=== PATIENT | male | born 1940 | race Hispanic/Latino ===

== ENCOUNTER → 2017-12-03 | Outpatient (CLI) | payer MEDICARE | LOC: RAH 15:30 | PROVIDERS: ATTEND Family Medicine | DX: M50.321 Other cervical disc degeneration at C4-C5 level (principal) | CPT/HCPCS: 72040; 72100; 73502 ==

== ENCOUNTER 2018-02-14 17:11 | Emergency (ER) | payer MEDICARE ==
[2018-02-14] MEDS ORDERED: TRAMADOL HCL 50 MG TABLET ONE (18:20)
== END 2018-02-14 19:53 | disposition home or self-care (01) ==
LOC: EDH 17:11
DX: M25.562 Pain in left knee (principal); R07.81 Pleurodynia; E11.9 Type 2 diabetes mellitus without complications; Z79.4 Long term (current) use of insulin; W01.0XXA Fall on same level from slipping, tripping and stumbling without subsequent striking against object, initial encounter; Y93.01 Activity, walking, marching and hiking; Y92.89 Other specified places as the place of occurrence of the external cause; Y99.8 Other external cause status
CPT/HCPCS: 71045; 71100; 73070; 73562

== ENCOUNTER 2020-06-02 07:22 | Day surgery (SDC) | payer OTHER, MEDICARE ==
[2020-05-31 14:42] LABS: BASOPHILS % (AUTO) 0.7 % (0.0-5.0); EOSINOPHILS % (AUTO) 3.8 % (0.0-8.0); HEMATOCRIT 35.4 % (42-54); LYMPHOCYTES % (AUTO) 18.9 % (21.0-51.0); MEAN CORPUSCULAR HGB CONC 32.5 g/dL (32.0-36.0); MEAN CORPUSCULAR VOLUME 101.7 fL (79-99); MONOCYTES % (AUTO) 8.6 % (3.0-13.0); NEUTROPHILS % (AUTO) 67.9 % (40.0-77.0); PLATELET COUNT (AUTO) 221 K/uL (130-400); RED BLOOD CELL COUNT(AUTO) 3.48 MIL/uL (4.50-6.20); RED CELL DISTRIBUTION WIDTH 12.7 % (11.0-15.5); WHITE BLOOD COUNT (AUTO) 7.3 K/uL (4.8-10.8)
[2020-05-31 14:54] LABS: INR 0.93 (0.85-1.15); PROTHROMBIN TIME 10.1 SEC (9.6-11.6)
[2020-05-31 14:56] LABS: ALBUMIN 3.9 g/dL (3.5-5.0); BILIRUBIN,TOTAL 0.6 mg/dL (0.2-1.0); CREATININE 6.9 mg/dL (0.5-1.5); POTASSIUM 5.8 mmol/L (3.5-5.1); TOTAL PROTEIN, SERUM 8.3 g/dL (6.0-8.3)
[2020-05-31 16:28] VITALS: BP 150/70
--- NOTE | 2020-06-01 16:39 | NUR ---
NURSE FOR DR. JULIANA MESSER NOTIFED OF ABNORMAL POTASSIUM, REPEAT DAY OF PROCEDURE. WILL ALSO SEND H&P.
[~2020-06-02] VITALS: Ht 165.1 cm; Wt 70.4 kg
[~2020-06-02 07:22] MED LIST: AMLO5TAB4 PO; CARV25TA77 PO; CHLO25TA23 PO; FERR-82 PO; FERR159T2 PO; INSU300I SQ; PANT40TA54 PO; PIOG45TA64 PO; SITA50TA PO; TAMS-1 PO; VITA1CAP20 PO
== END 2020-06-02 09:00 | disposition home or self-care (01) ==
LOC: DAH 07:22
PROVIDERS: ATTEND Thoracic Surgery (Cardiothoracic Vascular Surgery)
DX: Z01.818 Encounter for other preprocedural examination (principal); N18.6 End stage renal disease; Z99.2 Dependence on renal dialysis
CPT/HCPCS: 36415; 80053; 85025; 85610; 85730

== ENCOUNTER → 2020-07-12 | Outpatient (CLI) | payer OTHER, MEDICARE | END | disposition home or self-care (01) | LOC: LAB 07:56 | PROVIDERS: ATTEND Thoracic Surgery (Cardiothoracic Vascular Surgery) | DX: T82.590A Other mechanical complication of surgically created arteriovenous fistula, initial encounter (principal); N18.6 End stage renal disease ==

== ENCOUNTER → 2020-07-14 | Outpatient (CLI) | payer OTHER, MEDICARE ==
[2020-07-12 08:59] LABS: CREATININE 7.2 mg/dL (0.5-1.5)
[~2020-07-14] MED LIST changes: +IOHEXOL 350 MG/ML 100ML INFUS..BTL IV ONE
== END ==
LOC: RAH 08:29
PROVIDERS: ATTEND Thoracic Surgery (Cardiothoracic Vascular Surgery)
DX: T82.590A Other mechanical complication of surgically created arteriovenous fistula, initial encounter (principal); J98.11 Atelectasis; I77.0 Arteriovenous fistula, acquired; Y83.9 Surgical procedure, unspecified as the cause of abnormal reaction of the patient, or of later complication, without mention of misadventure at the time of the procedure; Y92.89 Other specified places as the place of occurrence of the external cause
CPT/HCPCS: 36415; 71275; 73206; 82565; 84520; Q9967

== ENCOUNTER → 2020-09-01 | Outpatient (CLI) | payer OTHER, MEDICARE ==
[~2020-09-01] MED LIST changes: -IOHEXOL 350 MG/ML 100ML INFUS..BTL IV ONE
== END | disposition home or self-care (01) ==
LOC: RAH 09:35
PROVIDERS: ATTEND Thoracic Surgery (Cardiothoracic Vascular Surgery)
DX: Z01.818 Encounter for other preprocedural examination (principal); T82.868A Thrombosis due to vascular prosthetic devices, implants and grafts, initial encounter; N18.6 End stage renal disease; Z99.2 Dependence on renal dialysis
CPT/HCPCS: 93971

== ENCOUNTER 2021-01-12 05:56 | Day surgery (SDC) | payer OTHER, MEDICARE ==
[2021-01-11 15:17] LABS: BASOPHILS % (AUTO) 1.1 % (0.0-5.0); EOSINOPHILS % (AUTO) 3.4 % (0.0-8.0); HEMATOCRIT 31.7 % (42-54); LYMPHOCYTES % (AUTO) 15.9 % (21.0-51.0); MEAN CORPUSCULAR HEMOGLOBIN 32.8 pg (27.0-33.0); MEAN CORPUSCULAR HGB CONC 34.1 g/dL (32.0-36.0); MEAN CORPUSCULAR VOLUME 96.4 fL (79-99); MONOCYTES % (AUTO) 10.6 % (3.0-13.0); NEUTROPHILS % (AUTO) 68.5 % (40.0-77.0); PLATELET COUNT (AUTO) 214 K/uL (130-400); RED BLOOD CELL COUNT(AUTO) 3.29 MIL/uL (4.50-6.20); RED CELL DISTRIBUTION WIDTH 13.1 % (11.0-15.5); WHITE BLOOD COUNT (AUTO) 4.4 K/uL (4.8-10.8)
[2021-01-11 15:29] LABS: INR 0.96 (0.85-1.15); PROTHROMBIN TIME 10.5 SEC (9.6-11.6)
[2021-01-11 15:31] VITALS: BP 162/76
[2021-01-11 15:31] LABS: PARTIAL THROMBOPLASTIN TIME 30.2 SEC (26.3-35.5)
[2021-01-11 15:33] LABS: ALBUMIN 3.9 g/dL (3.5-5.0); BILIRUBIN,TOTAL 0.7 mg/dL (0.2-1.0); CREATININE 3.8 mg/dL (0.5-1.5); POTASSIUM 3.6 mmol/L (3.5-5.1); TOTAL PROTEIN, SERUM 8.4 g/dL (6.0-8.3)
[2021-01-12] VITALS (20 sets, daily range): BP systolic 132–195; BP diastolic 68–99
[~2021-01-12] VITALS: Ht 170.2 cm; Wt 70.7 kg
[~2021-01-12 05:56] MED LIST changes: +CALC667C10 PO; -FERR-82 PO; -FERR159T2 PO; +HYDR-3421 PO; -INSU300I SQ; +LOSA25TA41 PO; +MECL-160 PO; +SEMA7TAB PO; -SITA50TA PO; +TRAZ-185 PO; -VITA1CAP20 PO
[2021-01-12] MEDS ORDERED: CEFAZOLIN SODIUM 1 GM VIAL IVP SCH (06:00)
[2021-01-12] MEDS ORDERED: LIDOCAINE HCL 2% 20ML ONE (06:43)
[2021-01-12] MEDS ORDERED: MIDAZOLAM HCL 1 MG/ML 2ML VIAL ONE (06:44)
[2021-01-12] MEDS ORDERED: LACTATED RINGERS 1000ML 1,000 ML IV ONE (06:50)
[2021-01-12] MEDS ORDERED: GLYCOPYRROLATE 1 MG/5 ML SYRINGE ONE (08:38)
[2021-01-12] MEDS ORDERED: NEOSTIGMINE 5MG/5ML SYR IV ONE (08:38)
[2021-01-12] MEDS ORDERED: FENTANYL CITRATE PF 50 MCG/1 ML 2ML VIAL ONE (08:40)
[2021-01-12] MEDS ORDERED: HEPARIN SODIUM 1000UNIT/ML 10ML VIAL ONE (08:45)
[2021-01-12] MEDS ORDERED: HYDRALAZINE HCL 20 MG/ML VIAL ONE (08:59)
[2021-01-12] MEDS ORDERED: ACETAMINOPHEN EXTRA STRENGTH 500 MG TABLET ONE (10:11)
[2021-01-12] MEDS ORDERED: ACETAMINOPHEN EXTRA STRENGTH 500 MG TABLET PO SCH (10:30)
== END 2021-01-12 11:00 | disposition home or self-care (01) ==
LOC: DAH 05:56
PROVIDERS: ATTEND Thoracic Surgery (Cardiothoracic Vascular Surgery)
DX: E11.22 Type 2 diabetes mellitus with diabetic chronic kidney disease (principal); Z20.822 Contact with and (suspected) exposure to COVID-19; I12.0 Hypertensive chronic kidney disease with stage 5 chronic kidney disease or end stage renal disease; N18.6 End stage renal disease; K21.9 Gastro-esophageal reflux disease without esophagitis; D64.9 Anemia, unspecified; Z79.899 Other long term (current) drug therapy; Z99.2 Dependence on renal dialysis; Z79.01 Long term (current) use of anticoagulants
CPT/HCPCS: 36415; 36821; 71045; 80053; 82948 ×2; 85025; 85610; 85730; 86850; 86900; 86901; 87426; 93005; A4215; A4216; A4221; A4222; A4223 ×2; A4657; A4663; A6207; A6260; C1713 ×2; G0168; J0360; J0690; J1644 ×2; J2250; J2710; J3010; J3490 ×2; J7030; J7120

== ENCOUNTER 2021-10-02 19:16 | Inpatient (IN) | payer OTHER, MEDICARE ==
[~2021-10-02] VITALS: Ht 170.2 cm; Wt 78.2 kg
[2021-10-02 20:06] LABS: BASOPHILS % (AUTO) 0.1 % (0.0-5.0); HEMATOCRIT 33.3 % (42-54); LYMPHOCYTES % (AUTO) 1.9 % (21.0-51.0); MEAN CORPUSCULAR HEMOGLOBIN 31.9 pg (27.0-33.0); MEAN CORPUSCULAR HGB CONC 29.7 g/dL (32.0-36.0); MEAN CORPUSCULAR VOLUME 107.4 fL (79-99); MONOCYTES % (AUTO) 4.4 % (3.0-13.0); NEUTROPHILS % (AUTO) 92.9 % (40.0-77.0); PLATELET COUNT (AUTO) 176 K/uL (130-400); RED CELL DISTRIBUTION WIDTH 13.3 % (11.0-15.5); WHITE BLOOD COUNT (AUTO) 7.5 K/uL (4.8-10.8)
[2021-10-02 20:10] LABS: ABG BASE EXCESS -16.8 mmol/L (-2.0-3.0); ABG HCO3 10.7 mmol/L (21.0-28.0); ABG OXYGEN SATURATION 91.6 % (95.0-99.0); ABG PCO2 31 mmHg (35-48)
[2021-10-02 20:23] LABS: INR 0.98 (0.85-1.15); PROTHROMBIN TIME 10.7 SEC (9.6-11.6)
[2021-10-02 20:24] LABS: PARTIAL THROMBOPLASTIN TIME 38.1 SEC (26.3-35.5)
[2021-10-02 20:28] LABS: ALBUMIN 2.5 g/dL (3.5-5.0); BILIRUBIN,TOTAL 0.7 mg/dL (0.2-1.0); TOTAL PROTEIN, SERUM 6.9 g/dL (6.0-8.3)
[2021-10-02 20:49] LABS: CREATININE 9.1 mg/dL (0.5-1.5); POTASSIUM 6.7 mmol/L (3.5-5.1)
[2021-10-02] MEDS ORDERED: 0.9%NACL 1000ML 1,000 ML IV ONE (20:58)
[2021-10-02] MEDS ORDERED: 0.9%NACL 50ML IV SCH (21:00)
[2021-10-02] MEDS ORDERED: INSULIN REGULAR, HUMAN 3ML 100 UNIT in 0.9%NACL 100ML 99 ML IV SCH ×2 (21:00)
[2021-10-02] MEDS ORDERED: INSULIN HUMULIN R 100 UNIT/ML 3ML IV ONE (21:00)
[2021-10-02] MEDS ORDERED: CALCIUM GLUC 1GM/10ML VIAL IVPB SCH (21:00)
[2021-10-02] MEDS ORDERED: INSULIN HUMULIN R 100 UNIT/ML 3ML ONE ×4 (21:08→23:53)
[2021-10-02] MEDS ORDERED: SODIUM BICARB 50MEQ 50ML VIAL 50 ML ONE (21:08)
[2021-10-02] MEDS ORDERED: NOREPINEPHRIN 4MG/NS 250ML 250 ML IV ONE (21:42)
[2021-10-02] MEDS ORDERED: SODIUM BICARB 50MEQ 50ML VIAL IV ONE (22:00)
[2021-10-02] MEDS: HEPARIN 5,000 UNIT VIAL SQ SCH (22:00)
[2021-10-02] MEDS ORDERED: GUAIFENESIN-DM 200/20 MG 10 ML PO PRN (22:00)
[2021-10-02] MEDS ORDERED: LACTATED RINGERS 1000ML 1,000 ML IV SCH (22:00)
[2021-10-02] MEDS ORDERED: NOREPINEPHRIN 4MG/NS 250ML 250 ML IV SCH (22:00)
[2021-10-02] MEDS: SODIUM BICARB 8.4% 50ML SYRINGE IVP SCH ×2 (22:00→23:00)
[2021-10-02] MEDS ORDERED: ALBUTEROL 0.083% 2.5 MG/3 ML INH IH ONE (22:00)
[2021-10-02] MEDS ORDERED: NITROGLYCERIN 0.4 MG SL TAB SL PRN (22:00)
[2021-10-02] MEDS ORDERED: ONDANSETRON 4MG INJ IV PRN (22:00)
[2021-10-02] MEDS ORDERED: LACTULOSE 20 GM/30 ML UDCUP PO PRN (22:00)
[2021-10-02 23:02] LABS: MAGNESIUM 2.4 mg/dL (1.80-2.40); PHOSPHORUS 8.5 mg/dL (2.5-4.9); THYROID STIMULATING HORMONE 0.37 uIU/mL (0.36-3.74)
[2021-10-02] MEDS: DEXAMETHASONE SOD PHOSPHATE 4 MG/ML 1ML VIAL IV SCH (23:26)
[2021-10-03] VITALS (11 sets, daily range): BP systolic 117–145; BP diastolic 52–66
[2021-10-03] MEDS ORDERED: INSULIN HUMULIN R 100 UNIT/ML 3ML IV ONE ×3 (00:30→06:00)
[2021-10-03 01:40] LABS: POTASSIUM 4.6 mmol/L (3.5-5.1)
[2021-10-03 01:44] LABS: CREATININE 9.3 mg/dL (0.5-1.5)
[2021-10-03] MEDS ORDERED: INSULIN HUMULIN R 100 UNIT/ML 3ML ONE (02:01)
[2021-10-03] MEDS: SODIUM BICARB 8.4% 50ML SYRINGE IVP SCH ×3 (02:34→03:00)
[2021-10-03 04:39] LABS: ALBUMIN 2.7 g/dL (3.5-5.0); BILIRUBIN,TOTAL 0.7 mg/dL (0.2-1.0); MAGNESIUM 2.2 mg/dL (1.80-2.40); PHOSPHORUS 4.9 mg/dL (2.5-4.9); POTASSIUM 4.1 mmol/L (3.5-5.1); TOTAL PROTEIN, SERUM 7.2 g/dL (6.0-8.3)
[2021-10-03 05:33] LABS: CREATININE 9.2 mg/dL (0.5-1.5)
[2021-10-03 07:34] LABS: HEMATOCRIT 28.9 % (42-54); MEAN CORPUSCULAR HEMOGLOBIN 30.9 pg (27.0-33.0); MEAN CORPUSCULAR HGB CONC 34.9 g/dL (32.0-36.0); MEAN CORPUSCULAR VOLUME 88.4 fL (79-99); PLATELET COUNT (AUTO) 195 K/uL (130-400); RED BLOOD CELL COUNT(AUTO) 3.27 MIL/uL (4.50-6.20); RED CELL DISTRIBUTION WIDTH 11.9 % (11.0-15.5); WHITE BLOOD COUNT (AUTO) 7.7 K/uL (4.8-10.8)
[2021-10-03 08:39] LABS: MAN.DIFF COMMENT-IMPRESSION MANUAL DIFFERENTIAL; MONOCYTES % (MANUAL) 2 % (2-9); SEGMENTED NEUTROPHILS % 98 % (40-70)
[2021-10-03 08:40] LABS: PLATELET MORPHOLOGY COMMENT ADEQUATE
[2021-10-03 08:45] LABS: HEMOGLOBIN A1C 13.6 % (4.0-6.0)
[2021-10-03] MEDS: PANTOPRAZOLE 40 MG/VIAL IVP SCH (09:00)
[2021-10-03 09:50] LABS: ABG BASE EXCESS 6.7 mmol/L (-2.0-3.0); ABG OXYGEN SATURATION 97.7 % (95.0-99.0); ABG PCO2 39 mmHg (35-48)
[2021-10-03] MEDS: HEPARIN 5,000 UNIT VIAL SQ SCH ×2 (10:00→23:07)
[2021-10-03 10:52] LABS: CREATININE 5.1 mg/dL (0.5-1.5); POTASSIUM 3.5 mmol/L (3.5-5.1)
[2021-10-03 14:28] LABS: HEPATITIS B SURFACE ANTIGEN Non-Reactive (Negative)
[2021-10-03] MEDS ORDERED: HALOPERIDOL INJ 5 MG/ML VIAL ONE (17:40)
[2021-10-03] MEDS ORDERED: HALOPERIDOL INJ 5 MG/ML VIAL IV PRN (18:00)
[2021-10-03] MEDS: HALOPERIDOL INJ 5 MG/ML VIAL IV PRN (18:16)
[2021-10-03] MEDS: OSELTAMIVIR PHOSPHATE 75 MG CAP PO SCH (23:05)
[2021-10-03] MEDS: DEXAMETHASONE SOD PHOSPHATE 4 MG/ML 1ML VIAL IV SCH (23:07)
[2021-10-04] VITALS (41 sets, daily range): BP systolic 100–158; BP diastolic 46–89
[2021-10-04] MEDS: ACETAMINOPHEN 325 MG TAB PO PRN ×2 (01:29→14:51)
[2021-10-04] MEDS: INSULIN REGULAR, HUMAN 3ML 100 UNIT in 0.9%NACL 100ML 99 ML IV PRN ×6 (03:11→18:13)
[2021-10-04 04:11] LABS: ABG BASE EXCESS -2.3 mmol/L (-2.0-3.0); ABG HCO3 21.7 mmol/L (21.0-28.0); ABG OXYGEN SATURATION 95.5 % (95.0-99.0); ABG PCO2 35 mmHg (35-48)
[2021-10-04] MEDS: INSULIN HUMULIN R 100 UNIT/ML 3ML SQ SCH ×4 (07:30→21:00)
[2021-10-04] MEDS ORDERED: INSULIN GLARGINE 100 UNITS/ML 10 ML VIAL SQ ONE (08:30)
[2021-10-04 09:24] LABS: HEMATOCRIT 27.8 % (42-54); LYMPHOCYTES % (AUTO) 2.2 % (21.0-51.0); MEAN CORPUSCULAR HEMOGLOBIN 32.1 pg (27.0-33.0); MEAN CORPUSCULAR HGB CONC 35.3 g/dL (32.0-36.0); MEAN CORPUSCULAR VOLUME 91.1 fL (79-99); MONOCYTES % (AUTO) 4.3 % (3.0-13.0); PLATELET COUNT (AUTO) 188 K/uL (130-400); RED BLOOD CELL COUNT(AUTO) 3.05 MIL/uL (4.50-6.20); RED CELL DISTRIBUTION WIDTH 12.3 % (11.0-15.5); WHITE BLOOD COUNT (AUTO) 7.8 K/uL (4.8-10.8)
[2021-10-04 09:43] LABS: ALBUMIN 2.3 g/dL (3.5-5.0); BILIRUBIN,TOTAL 0.5 mg/dL (0.2-1.0); CREATININE 6.9 mg/dL (0.5-1.5); POTASSIUM 3.9 mmol/L (3.5-5.1); TOTAL PROTEIN, SERUM 6.1 g/dL (6.0-8.3)
[2021-10-04] MEDS: PANTOPRAZOLE 40 MG/VIAL IVP SCH (09:45)
[2021-10-04] MEDS: HEPARIN 5,000 UNIT VIAL SQ SCH ×2 (09:48→22:11)
[2021-10-04] MEDS: DEXMEDETOMIDINE 400MCG/NS100ML IV SCH (18:15)
[2021-10-04 19:30] LABS: CREATININE 4.2 mg/dL (0.5-1.5); POTASSIUM 3.4 mmol/L (3.5-5.1)
[2021-10-04] MEDS ORDERED: LIDOCAINE HCL-MPF 1% 2ML VIAL IV PRN (20:30)
[2021-10-04] MEDS ORDERED: POTASSIUM CHLORIDE 10MEQ/100ML 100 ML IV PRN (20:30)
[2021-10-04] MEDS: DEXAMETHASONE SOD PHOSPHATE 4 MG/ML 1ML VIAL IV SCH (22:10)
[2021-10-04] MEDS: OSELTAMIVIR PHOSPHATE 75 MG CAP PO SCH (22:12)
[2021-10-05] VITALS (36 sets, daily range): BP systolic 116–166; BP diastolic 48–101
[2021-10-05 03:50] LABS: BASOPHILS % (AUTO) 0.1 % (0.0-5.0); LYMPHOCYTES % (AUTO) 1.8 % (21.0-51.0); MEAN CORPUSCULAR HEMOGLOBIN 31.4 pg (27.0-33.0); MEAN CORPUSCULAR HGB CONC 33.2 g/dL (32.0-36.0); MEAN CORPUSCULAR VOLUME 94.5 fL (79-99); MONOCYTES % (AUTO) 2.2 % (3.0-13.0); NEUTROPHILS % (AUTO) 94.9 % (40.0-77.0); PLATELET COUNT (AUTO) 172 K/uL (130-400); RED BLOOD CELL COUNT(AUTO) 3.28 MIL/uL (4.50-6.20); RED CELL DISTRIBUTION WIDTH 12.7 % (11.0-15.5); WHITE BLOOD COUNT (AUTO) 8.3 K/uL (4.8-10.8)
[2021-10-05 04:05] LABS: ALBUMIN 2.3 g/dL (3.5-5.0); BILIRUBIN,TOTAL 0.7 mg/dL (0.2-1.0); CREATININE 4.9 mg/dL (0.5-1.5); POTASSIUM 4.4 mmol/L (3.5-5.1); TOTAL PROTEIN, SERUM 6.3 g/dL (6.0-8.3)
[2021-10-05] MEDS: DEXMEDETOMIDINE 400MCG/NS100ML IV SCH ×3 (04:10→18:04)
[2021-10-05 04:27] LABS: ABG BASE EXCESS -3.9 mmol/L (-2.0-3.0); ABG HCO3 19.9 mmol/L (21.0-28.0); ABG OXYGEN SATURATION 97.8 % (95.0-99.0); ABG PCO2 33 mmHg (35-48)
[2021-10-05] MEDS: INSULIN GLARGINE 100 UNITS/ML 10 ML VIAL SQ SCH ×2 (06:47→09:43)
[2021-10-05] MEDS: INSULIN HUMULIN R 100 UNIT/ML 3ML SQ SCH (06:48)
[2021-10-05] MEDS: PANTOPRAZOLE 40 MG/VIAL IVP SCH (09:41)
[2021-10-05] MEDS: HEPARIN 5,000 UNIT VIAL SQ SCH ×2 (09:42→21:26)
[2021-10-05 19:28] LABS: CREATININE 5.8 mg/dL (0.5-1.5)
[2021-10-05] MEDS: DEXAMETHASONE SOD PHOSPHATE 4 MG/ML 1ML VIAL IV SCH (21:26)
[2021-10-06] VITALS (49 sets, daily range): BP systolic 113–179; BP diastolic 50–106
[2021-10-06] MEDS: DEXMEDETOMIDINE 400MCG/NS100ML IV SCH ×3 (01:06→18:10)
[2021-10-06 04:14] LABS: EOSINOPHILS % (AUTO) 0.2 % (0.0-8.0); HEMATOCRIT 32.7 % (42-54); LYMPHOCYTES % (AUTO) 3.1 % (21.0-51.0); MEAN CORPUSCULAR HEMOGLOBIN 31.1 pg (27.0-33.0); MEAN CORPUSCULAR HGB CONC 32.4 g/dL (32.0-36.0); MEAN CORPUSCULAR VOLUME 95.9 fL (79-99); MONOCYTES % (AUTO) 2.7 % (3.0-13.0); NEUTROPHILS % (AUTO) 92.7 % (40.0-77.0); PLATELET COUNT (AUTO) 126 K/uL (130-400); RED BLOOD CELL COUNT(AUTO) 3.41 MIL/uL (4.50-6.20); RED CELL DISTRIBUTION WIDTH 12.6 % (11.0-15.5); WHITE BLOOD COUNT (AUTO) 8.5 K/uL (4.8-10.8)
[2021-10-06 04:24] LABS: ALBUMIN 1.9 g/dL (3.5-5.0); BILIRUBIN,TOTAL 0.5 mg/dL (0.2-1.0); CREATININE 5.6 mg/dL (0.5-1.5); MAGNESIUM 1.9 mg/dL (1.80-2.40); PHOSPHORUS 4.3 mg/dL (2.5-4.9); POTASSIUM 4.4 mmol/L (3.5-5.1); TOTAL PROTEIN, SERUM 5.6 g/dL (6.0-8.3)
[2021-10-06] MEDS ORDERED: GLUCAGON 1MG KIT 1 MG ML IM PRN (06:00)
[2021-10-06] MEDS ORDERED: DEXTROSE 50%-WATER 50 ML DISP.SYRIN IV PRN (06:00)
[2021-10-06] MEDS: INSULIN HUMULIN R 100 UNIT/ML 3ML SQ SCH ×4 (06:17→21:16)
[2021-10-06 08:47] LABS: INR 0.9 (0.85-1.15); PROTHROMBIN TIME 9.9 SEC (9.6-11.6)
[2021-10-06] MEDS: PANTOPRAZOLE 40 MG/VIAL IVP SCH (08:48)
[2021-10-06] MEDS: HEPARIN 5,000 UNIT VIAL SQ SCH ×2 (08:49→21:21)
[2021-10-06] MEDS: INSULIN GLARGINE 100 UNITS/ML 10 ML VIAL SQ SCH (08:51)
[2021-10-06] MEDS ORDERED: 0.9%NACL 1000ML 2,000 ML IV ONE (12:21)
[2021-10-06] MEDS ORDERED: QUETIAPINE FUMARATE 25 MG TAB PO PRN (18:30)
[2021-10-06] MEDS: DEXAMETHASONE SOD PHOSPHATE 4 MG/ML 1ML VIAL IV SCH (21:20)
[2021-10-07] VITALS (22 sets, daily range): BP systolic 138–204; BP diastolic 72–135
[2021-10-07 04:12] LABS: CREATININE 4.4 mg/dL (0.5-1.5); POTASSIUM 4.1 mmol/L (3.5-5.1)
[2021-10-07] MEDS: ACETAMINOPHEN 325 MG TAB PO PRN (04:55)
[2021-10-07] MEDS: HALOPERIDOL INJ 5 MG/ML VIAL IV PRN (04:55)
[2021-10-07] MEDS: INSULIN HUMULIN R 100 UNIT/ML 3ML SQ SCH ×4 (07:30→21:00)
[2021-10-07] MEDS: INSULIN GLARGINE 100 UNITS/ML 10 ML VIAL SQ SCH (08:23)
[2021-10-07] MEDS: HEPARIN 5,000 UNIT VIAL SQ SCH ×2 (08:24→21:07)
[2021-10-07] MEDS: HYDROXYZINE 25 MG TABLET PO PRN ×2 (08:30→18:17)
[2021-10-07] MEDS: PANTOPRAZOLE 40 MG TAB DR PO SCH (08:32)
[2021-10-07] MEDS ORDERED: HYDRALAZINE 25MG TABLET PO SCH (09:00)
[2021-10-07] MEDS: OSELTAMIVIR PHOSPHATE 75 MG CAP PO SCH (21:06)
[2021-10-07] MEDS: DEXAMETHASONE SOD PHOSPHATE 4 MG/ML 1ML VIAL IV SCH (21:06)
[2021-10-08 03:41] VITALS: BP 170/80
[2021-10-08 04:21] LABS: BASOPHILS % (AUTO) 0.2 % (0.0-5.0); EOSINOPHILS % (AUTO) 0.5 % (0.0-8.0); HEMATOCRIT 35.2 % (42-54); LYMPHOCYTES % (AUTO) 3.1 % (21.0-51.0); MEAN CORPUSCULAR HEMOGLOBIN 31.4 pg (27.0-33.0); MEAN CORPUSCULAR HGB CONC 32.1 g/dL (32.0-36.0); MEAN CORPUSCULAR VOLUME 97.8 fL (79-99); MONOCYTES % (AUTO) 2.9 % (3.0-13.0); NEUTROPHILS % (AUTO) 91.3 % (40.0-77.0); PLATELET COUNT (AUTO) 171 K/uL (130-400); RED CELL DISTRIBUTION WIDTH 13.1 % (11.0-15.5); WHITE BLOOD COUNT (AUTO) 9.8 K/uL (4.8-10.8)
[2021-10-08 04:44] LABS: ALBUMIN 2.5 g/dL (3.5-5.0); BILIRUBIN,TOTAL 0.6 mg/dL (0.2-1.0); CREATININE 5.8 mg/dL (0.5-1.5); POTASSIUM 4.9 mmol/L (3.5-5.1); TOTAL PROTEIN, SERUM 6.9 g/dL (6.0-8.3)
[2021-10-08] MEDS: INSULIN HUMULIN R 100 UNIT/ML 3ML SQ SCH ×4 (06:28→21:00)
[2021-10-08 08:00] VITALS: BP 165/74
[2021-10-08 08:23] LABS: MAGNESIUM 2.1 mg/dL (1.80-2.40); PHOSPHORUS 4.1 mg/dL (2.5-4.9)
[2021-10-08] MEDS: PANTOPRAZOLE 40 MG TAB DR PO SCH (10:26)
[2021-10-08] MEDS: INSULIN GLARGINE 100 UNITS/ML 10 ML VIAL SQ SCH (10:32)
[2021-10-08] MEDS: HEPARIN 5,000 UNIT VIAL SQ SCH ×2 (10:37→21:08)
[2021-10-08 12:00] VITALS: BP 172/80
[2021-10-08 16:00] VITALS: BP 172/82
[2021-10-08] MEDS ORDERED: MONT-39 PO (17:43)
[2021-10-08] MEDS ORDERED: INSU100V39 SQ (17:48)
[2021-10-08] MEDS ORDERED: INSU300I SQ (17:49)
[2021-10-08 20:00] VITALS: BP 156/78
[2021-10-08] MEDS: DEXAMETHASONE SOD PHOSPHATE 4 MG/ML 1ML VIAL IV SCH (21:06)
[2021-10-09] VITALS (21 sets, daily range): BP systolic 122–193; BP diastolic 63–98
[2021-10-09] MEDS: HYDRALAZINE 20MG/ML VIAL IV PRN (04:10)
[2021-10-09 04:18] LABS: HEMATOCRIT 34.3 % (42-54); MEAN CORPUSCULAR HEMOGLOBIN 30.9 pg (27.0-33.0); MEAN CORPUSCULAR HGB CONC 31.5 g/dL (32.0-36.0); MEAN CORPUSCULAR VOLUME 98.3 fL (79-99); PLATELET COUNT (AUTO) 194 K/uL (130-400); RED BLOOD CELL COUNT(AUTO) 3.49 MIL/uL (4.50-6.20); RED CELL DISTRIBUTION WIDTH 13.1 % (11.0-15.5); WHITE BLOOD COUNT (AUTO) 9.4 K/uL (4.8-10.8)
[2021-10-09 04:54] LABS: LYMPHOCYTES % (MANUAL) 4 % (22-44); MONOCYTES % (MANUAL) 4 % (2-9); SEGMENTED NEUTROPHILS % 92 % (40-70)
[2021-10-09 04:55] LABS: MAN.DIFF COMMENT-IMPRESSION MANUAL DIFFERENTIAL; PLATELET MORPHOLOGY COMMENT ADEQUATE
[2021-10-09 05:07] LABS: ALBUMIN 2.7 g/dL (3.5-5.0); BILIRUBIN,TOTAL 0.7 mg/dL (0.2-1.0); CREATININE 7.2 mg/dL (0.5-1.5); TOTAL PROTEIN, SERUM 7.3 g/dL (6.0-8.3)
[2021-10-09] MEDS: INSULIN HUMULIN R 100 UNIT/ML 3ML SQ SCH ×4 (07:00→20:15)
[2021-10-09] MEDS: PANTOPRAZOLE 40 MG TAB DR PO SCH (08:27)
[2021-10-09] MEDS: INSULIN GLARGINE 100 UNITS/ML 10 ML VIAL SQ SCH (08:29)
[2021-10-09] MEDS: HEPARIN 5,000 UNIT VIAL SQ SCH ×2 (10:38→20:19)
[2021-10-09] MEDS: DEXAMETHASONE SOD PHOSPHATE 4 MG/ML 1ML VIAL IV SCH (20:14)
[2021-10-09] MEDS ORDERED: MONTELUKAST SODIUM 10 MG TAB PO SCH (22:30)
[2021-10-10] VITALS: BP 164/85
[2021-10-10 04:00] VITALS: BP 166/74
[2021-10-10 04:45] LABS: EOSINOPHILS % (AUTO) 0.5 % (0.0-8.0); HEMATOCRIT 33.2 % (42-54); LYMPHOCYTES % (AUTO) 4.6 % (21.0-51.0); MEAN CORPUSCULAR HEMOGLOBIN 30.7 pg (27.0-33.0); MEAN CORPUSCULAR VOLUME 98.8 fL (79-99); MONOCYTES % (AUTO) 4.5 % (3.0-13.0); NEUTROPHILS % (AUTO) 89.2 % (40.0-77.0); PLATELET COUNT (AUTO) 198 K/uL (130-400); RED BLOOD CELL COUNT(AUTO) 3.36 MIL/uL (4.50-6.20); RED CELL DISTRIBUTION WIDTH 13.1 % (11.0-15.5); WHITE BLOOD COUNT (AUTO) 7.3 K/uL (4.8-10.8)
[2021-10-10 05:02] LABS: ALBUMIN 2.4 g/dL (3.5-5.0); BILIRUBIN,TOTAL 0.5 mg/dL (0.2-1.0); CREATININE 5.1 mg/dL (0.5-1.5); POTASSIUM 4.7 mmol/L (3.5-5.1); TOTAL PROTEIN, SERUM 6.6 g/dL (6.0-8.3)
[2021-10-10] MEDS: HYDRALAZINE 20MG/ML VIAL IV PRN (05:09)
[2021-10-10] MEDS: INSULIN HUMULIN R 100 UNIT/ML 3ML SQ SCH ×4 (06:04→20:29)
[2021-10-10 08:00] VITALS: BP 143/78
[2021-10-10] MEDS: LOSARTAN 25 MG TABLET PO SCH (08:08)
[2021-10-10] MEDS: AMLODIPINE 5 MG TAB PO SCH (08:09)
[2021-10-10] MEDS: TAMSULOSIN HCL 0.4 MG CAP.ER.24H PO SCH (08:09)
[2021-10-10] MEDS: PANTOPRAZOLE 40 MG TAB DR PO SCH (08:09)
[2021-10-10] MEDS: CARVEDILOL 25 MG TABLET PO SCH ×2 (08:09→20:28)
[2021-10-10] MEDS: PIOGLITAZONE 45MG TAB PO SCH (08:26)
[2021-10-10] MEDS: INSULIN GLARGINE 100 UNITS/ML 10 ML VIAL SQ SCH (09:07)
[2021-10-10] MEDS: HEPARIN 5,000 UNIT VIAL SQ SCH ×2 (11:41→20:30)
[2021-10-10 12:00] VITALS: BP 127/65
[2021-10-10 16:00] VITALS: BP 111/58
[2021-10-10 20:00] VITALS: BP 130/59
[2021-10-10] MEDS: DEXAMETHASONE SOD PHOSPHATE 4 MG/ML 1ML VIAL IV SCH (20:28)
[2021-10-10] MEDS ORDERED: DEXA6TAB PO (22:19)
[2021-10-11] VITALS (22 sets, daily range): BP systolic 94–166; BP diastolic 48–86
[2021-10-11 05:46] LABS: HEMATOCRIT 31.9 % (42-54); MEAN CORPUSCULAR HEMOGLOBIN 30.4 pg (27.0-33.0); MEAN CORPUSCULAR VOLUME 97.9 fL (79-99); RED BLOOD CELL COUNT(AUTO) 3.26 MIL/uL (4.50-6.20); RED CELL DISTRIBUTION WIDTH 12.9 % (11.0-15.5); WHITE BLOOD COUNT (AUTO) 6.5 K/uL (4.8-10.8)
[2021-10-11] MEDS: INSULIN HUMULIN R 100 UNIT/ML 3ML SQ SCH ×4 (06:04→20:49)
[2021-10-11 06:06] LABS: CREATININE 6.6 mg/dL (0.5-1.5); POTASSIUM 5.3 mmol/L (3.5-5.1)
[2021-10-11 07:17] LABS: ABG BASE EXCESS -0.4 mmol/L (-2.0-3.0); ABG HCO3 23.7 mmol/L (21.0-28.0); ABG OXYGEN SATURATION 94.7 % (95.0-99.0); ABG PCO2 37 mmHg (35-48)
[2021-10-11] MEDS: PANTOPRAZOLE 40 MG TAB DR PO SCH (08:36)
[2021-10-11] MEDS: PIOGLITAZONE 45MG TAB PO SCH (08:36)
[2021-10-11] MEDS: LOSARTAN 25 MG TABLET PO SCH (08:37)
[2021-10-11] MEDS: TAMSULOSIN HCL 0.4 MG CAP.ER.24H PO SCH (08:37)
[2021-10-11] MEDS: CARVEDILOL 25 MG TABLET PO SCH ×2 (08:37→21:00)
[2021-10-11] MEDS: AMLODIPINE 5 MG TAB PO SCH (08:40)
[2021-10-11] MEDS: INSULIN GLARGINE 100 UNITS/ML 10 ML VIAL SQ SCH ×2 (08:42→20:50)
[2021-10-11] MEDS: HEPARIN 5,000 UNIT VIAL SQ SCH ×2 (10:00→20:48)
[2021-10-11] MEDS: DEXAMETHASONE SOD PHOSPHATE 4 MG/ML 1ML VIAL IV SCH (20:44)
[2021-10-12 03:29] VITALS: BP 114/61
[2021-10-12] MEDS: INSULIN GLARGINE 100 UNITS/ML 10 ML VIAL SQ SCH (06:33)
[2021-10-12] MEDS: INSULIN HUMULIN R 100 UNIT/ML 3ML SQ SCH (06:33)
[2021-10-12 08:00] VITALS: BP 146/69
[2021-10-12] MEDS: PIOGLITAZONE 45MG TAB PO SCH (08:52)
[2021-10-12 08:53] VITALS: BP 146/69
[2021-10-12] MEDS: AMLODIPINE 5 MG TAB PO SCH (08:53)
[2021-10-12] MEDS: CARVEDILOL 25 MG TABLET PO SCH (08:53)
[2021-10-12] MEDS: TAMSULOSIN HCL 0.4 MG CAP.ER.24H PO SCH (08:53)
[2021-10-12] MEDS: PANTOPRAZOLE 40 MG TAB DR PO SCH (08:53)
[2021-10-12] MEDS: LOSARTAN 25 MG TABLET PO SCH (08:53)
[2021-10-12] MEDS: HEPARIN 5,000 UNIT VIAL SQ SCH (09:52)
== END 2021-10-12 11:50 | disposition home or self-care (01) | DRG 871 ==
LOC: EDH 19:16 → EDHIP 21:55 → 2BH 10-04 13:02 → 4AH 10-07 21:11
PROVIDERS: ADMIT Internal Medicine Pulmonary Disease; ATTEND Internal Medicine Pulmonary Disease
PROC: 5A1D70Z Performance of Urinary Filtration, Intermittent, Less than 6 Hours Per Day (ICD-10-PCS; principal; 2021-10-02)
PROC: 5A1D70Z Performance of Urinary Filtration, Intermittent, Less than 6 Hours Per Day (ICD-10-PCS; 2021-10-03)
PROC: 5A0935A Assistance with Respiratory Ventilation, Less than 24 Consecutive Hours, High Flow/Velocity Cannula (ICD-10-PCS; 2021-10-03)
PROC: 5A1D70Z Performance of Urinary Filtration, Intermittent, Less than 6 Hours Per Day (ICD-10-PCS; 2021-10-04)
PROC: 5A0935A Assistance with Respiratory Ventilation, Less than 24 Consecutive Hours, High Flow/Velocity Cannula (ICD-10-PCS; 2021-10-04)
PROC: 5A0935A Assistance with Respiratory Ventilation, Less than 24 Consecutive Hours, High Flow/Velocity Cannula (ICD-10-PCS; 2021-10-05)
PROC: 5A1D70Z Performance of Urinary Filtration, Intermittent, Less than 6 Hours Per Day (ICD-10-PCS; 2021-10-06)
PROC: 5A0935A Assistance with Respiratory Ventilation, Less than 24 Consecutive Hours, High Flow/Velocity Cannula (ICD-10-PCS; 2021-10-06)
PROC: 5A0935A Assistance with Respiratory Ventilation, Less than 24 Consecutive Hours, High Flow/Velocity Cannula (ICD-10-PCS; 2021-10-07)
PROC: 5A1D70Z Performance of Urinary Filtration, Intermittent, Less than 6 Hours Per Day (ICD-10-PCS; 2021-10-08)
PROC: 5A0935A Assistance with Respiratory Ventilation, Less than 24 Consecutive Hours, High Flow/Velocity Cannula (ICD-10-PCS; 2021-10-08)
PROC: 5A1D70Z Performance of Urinary Filtration, Intermittent, Less than 6 Hours Per Day (ICD-10-PCS; 2021-10-09)
PROC: 5A1D70Z Performance of Urinary Filtration, Intermittent, Less than 6 Hours Per Day (ICD-10-PCS; 2021-10-11)
DX: A41.9 Sepsis, unspecified organism (principal); E11.10 Type 2 diabetes mellitus with ketoacidosis without coma; U07.1 COVID-19; N18.6 End stage renal disease; J12.82 Pneumonia due to coronavirus disease 2019; J96.01 Acute respiratory failure with hypoxia; R65.21 Severe sepsis with septic shock; J10.08 Influenza due to other identified influenza virus with other specified pneumonia; E87.1 Hypo-osmolality and hyponatremia; I12.0 Hypertensive chronic kidney disease with stage 5 chronic kidney disease or end stage renal disease; E87.5 Hyperkalemia; N40.0 Benign prostatic hyperplasia without lower urinary tract symptoms; E11.65 Type 2 diabetes mellitus with hyperglycemia; E11.22 Type 2 diabetes mellitus with diabetic chronic kidney disease; E78.00 Pure hypercholesterolemia, unspecified; Z99.2 Dependence on renal dialysis; Z79.4 Long term (current) use of insulin; Z79.899 Other long term (current) drug therapy; Z88.8 Allergy status to other drugs, medicaments and biological substances; Z83.3 Family history of diabetes mellitus
CPT/HCPCS: 36415; 36600; 71045; 80048; 80053; 80061; 82435; 82803; 82947; 82948; 83036; 83605; 83690; 83735; 84100; 84132; 84145; 84295; 84443; 84484; 84550; 85018; 85025; 85027; 85610; 85730; 86704; 86706; 87040; 87340; 87426; 87804; 90935; 93005; 94760; 97039; 99291; C9113; G0378; J0360; J0610; J1100; J1630; J1644; J1815; J3490; J7030

== ENCOUNTER 2021-10-17 11:30 | Observation (INO) | payer OTHER, MEDICARE ==
[2021-10-17] VITALS (13 sets, daily range): BP systolic 86–132; BP diastolic 50–60
[~2021-10-17] VITALS: Ht 160 cm; Wt 81.6 kg
[~2021-10-17 11:30] MED LIST changes: -CHLO25TA23 PO; +DEXA6TAB PO; -HYDR-3421 PO; +INSU100V39 SQ; +INSU300I SQ; -MECL-160 PO; +MONT-39 PO; -SEMA7TAB PO; -TRAZ-185 PO
[2021-10-17 12:06] LABS: ABG BASE EXCESS -5.9 mmol/L (-2.0-3.0); ABG HCO3 19.3 mmol/L (21.0-28.0); ABG OXYGEN SATURATION 94.4 % (95.0-99.0); ABG PCO2 37 mmHg (35-48)
[2021-10-17 12:24] LABS: BASOPHILS % (AUTO) 0.4 % (0.0-5.0); EOSINOPHILS % (AUTO) 2.3 % (0.0-8.0); HEMATOCRIT 27.8 % (42-54); LYMPHOCYTES % (AUTO) 6.2 % (21.0-51.0); MEAN CORPUSCULAR HGB CONC 33.5 g/dL (32.0-36.0); MEAN CORPUSCULAR VOLUME 95.5 fL (79-99); MONOCYTES % (AUTO) 5.7 % (3.0-13.0); PLATELET COUNT (AUTO) 194 K/uL (130-400); RED BLOOD CELL COUNT(AUTO) 2.91 MIL/uL (4.50-6.20); RED CELL DISTRIBUTION WIDTH 13.1 % (11.0-15.5); WHITE BLOOD COUNT (AUTO) 8.3 K/uL (4.8-10.8)
[2021-10-17 12:37] LABS: ALBUMIN 2.9 g/dL (3.5-5.0); BILIRUBIN,TOTAL 0.5 mg/dL (0.2-1.0); TOTAL PROTEIN, SERUM 7.4 g/dL (6.0-8.3)
[2021-10-17 12:40] LABS: CREATININE 10.5 mg/dL (0.5-1.5); POTASSIUM 6.2 mmol/L (3.5-5.1)
[2021-10-17] MEDS ORDERED: INSULIN HUMULIN R 100 UNIT/ML 3ML IV ONE (13:00)
[2021-10-17] MEDS ORDERED: CLONIDINE HCL 0.1 MG TABLET PO ONE (13:00)
[2021-10-17] MEDS ORDERED: ALBUTEROL 0.083% 2.5 MG/3 ML INH IH ONE (13:30)
[2021-10-17] MEDS ORDERED: KAYEXALATE 15GM/60ML PO ONE (13:30)
[2021-10-17] MEDS ORDERED: HYDRALAZINE 20MG/ML VIAL IV PRN (15:30)
[2021-10-17] MEDS ORDERED: KAYEXALATE 15GM/60ML PO PRN (15:30)
[2021-10-17] MEDS ORDERED: LACTULOSE 20 GM/30 ML UDCUP PO PRN (15:30)
[2021-10-17] MEDS ORDERED: LABETALOL 20MG SYG IV PRN (15:30)
[2021-10-17] MEDS ORDERED: ONDANSETRON 4MG INJ IVP PRN (15:30)
[2021-10-17] MEDS ORDERED: PHARMACY COMMUNICATION MISC SCH (16:00)
[2021-10-17 16:08] LABS: INR 0.94 (0.85-1.15); PROTHROMBIN TIME 10.3 SEC (9.6-11.6)
[2021-10-17] MEDS: INSULIN HUMULIN R 100 UNIT/ML 3ML SQ SCH ×2 (17:00→21:00)
[2021-10-17] MEDS: CARVEDILOL 25 MG TABLET PO SCH (21:00)
[2021-10-17] MEDS: INSULIN GLARGINE 100 UNITS/ML 10 ML VIAL SQ SCH (21:00)
[2021-10-18] VITALS (13 sets, daily range): BP systolic 119–169; BP diastolic 51–96
[2021-10-18 05:07] LABS: BASOPHILS % (AUTO) 0.5 % (0.0-5.0); EOSINOPHILS % (AUTO) 1.5 % (0.0-8.0); HEMATOCRIT 27.1 % (42-54); LYMPHOCYTES % (AUTO) 5.4 % (21.0-51.0); MEAN CORPUSCULAR HGB CONC 33.6 g/dL (32.0-36.0); MEAN CORPUSCULAR VOLUME 95.4 fL (79-99); MONOCYTES % (AUTO) 5.7 % (3.0-13.0); NEUTROPHILS % (AUTO) 86.6 % (40.0-77.0); PLATELET COUNT (AUTO) 180 K/uL (130-400); RED BLOOD CELL COUNT(AUTO) 2.84 MIL/uL (4.50-6.20); RED CELL DISTRIBUTION WIDTH 13.2 % (11.0-15.5); WHITE BLOOD COUNT (AUTO) 6.6 K/uL (4.8-10.8)
[2021-10-18 05:12] LABS: CREATININE 7.7 mg/dL (0.5-1.5); MAGNESIUM 2.3 mg/dL (1.80-2.40); PHOSPHORUS 5.3 mg/dL (2.5-4.9); POTASSIUM 4.4 mmol/L (3.5-5.1)
[2021-10-18 05:28] LABS: B-TYPE NATRIURETIC PEPTIDE 688 pg/mL (0-100)
[2021-10-18] MEDS: INSULIN HUMULIN R 100 UNIT/ML 3ML SQ SCH ×4 (07:30→20:31)
[2021-10-18] MEDS: INSULIN GLARGINE 100 UNITS/ML 10 ML VIAL SQ SCH ×2 (07:30→20:31)
[2021-10-18] MEDS: LOSARTAN 25 MG TABLET PO SCH (09:00)
[2021-10-18] MEDS: AMLODIPINE 5 MG TAB PO SCH (09:00)
[2021-10-18] MEDS: CARVEDILOL 25 MG TABLET PO SCH ×2 (10:06→20:29)
[2021-10-18] MEDS: TAMSULOSIN HCL 0.4 MG CAP.ER.24H PO SCH (10:06)
[2021-10-18] MEDS ORDERED: HYDR-3421 PO (13:02)
[2021-10-18] MEDS ORDERED: CHLO25TA23 PO (13:02)
[2021-10-18] MEDS: ACETAMINOPHEN 325 MG TAB PO PRN (20:30)
[2021-10-19] VITALS (7 sets, daily range): BP systolic 113–134; BP diastolic 46–63
[2021-10-19] MEDS ORDERED: HYDROXYZINE 25 MG TABLET PO PRN
[2021-10-19] MEDS ORDERED: DiphenhydrAMINE HCL 50 MG/ML VIAL IV ONE (02:30)
[2021-10-19] MEDS: INSULIN HUMULIN R 100 UNIT/ML 3ML SQ SCH ×4 (05:32→20:46)
[2021-10-19] MEDS: INSULIN GLARGINE 100 UNITS/ML 10 ML VIAL SQ SCH ×2 (06:41→20:46)
[2021-10-19 07:22] LABS: BASOPHILS % (AUTO) 0.1 % (0.0-5.0); EOSINOPHILS % (AUTO) 0.9 % (0.0-8.0); HEMATOCRIT 22.8 % (42-54); LYMPHOCYTES % (AUTO) 1.7 % (21.0-51.0); MEAN CORPUSCULAR HEMOGLOBIN 30.9 pg (27.0-33.0); MEAN CORPUSCULAR VOLUME 96.6 fL (79-99); MONOCYTES % (AUTO) 3.9 % (3.0-13.0); PLATELET COUNT (AUTO) 125 K/uL (130-400); RED BLOOD CELL COUNT(AUTO) 2.36 MIL/uL (4.50-6.20); RED CELL DISTRIBUTION WIDTH 13.3 % (11.0-15.5)
[2021-10-19 07:41] LABS: ALBUMIN 2.3 g/dL (3.5-5.0); BILIRUBIN,TOTAL 0.5 mg/dL (0.2-1.0); TOTAL PROTEIN, SERUM 6.1 g/dL (6.0-8.3)
[2021-10-19] MEDS: LOSARTAN 25 MG TABLET PO SCH (08:57)
[2021-10-19] MEDS: AMLODIPINE 5 MG TAB PO SCH (08:57)
[2021-10-19] MEDS: CARVEDILOL 25 MG TABLET PO SCH ×2 (08:58→20:47)
[2021-10-19] MEDS: TAMSULOSIN HCL 0.4 MG CAP.ER.24H PO SCH (08:58)
[2021-10-19] MEDS ORDERED: IRON SUCROSE COMPLEX 100 MG in 0.9%NACL 50ML 50 ML IV SCH (09:30)
[2021-10-19] MEDS ORDERED: COMPOUND IV MISC 1 EACH IVSOLN MISC PRN (09:30)
[2021-10-19 11:49] LABS: INR 0.95 (0.85-1.15); PROTHROMBIN TIME 10.4 SEC (9.6-11.6)
[2021-10-19] MEDS ORDERED: DEXTROSE 50%-WATER 50 ML DISP.SYRIN IV ONE ×2 (15:45→15:46)
[2021-10-19] MEDS: ACETAMINOPHEN 325 MG TAB PO PRN (16:25)
[2021-10-20] MEDS ORDERED: EPOETIN ALFA-EPBX (ESRD) 10,000 UNIT/ML VIAL SQ SCH (21:00)
== END 2021-10-19 20:45 ==
LOC: EDH 11:30 → UNDOADMOB 15:03 → EDHIP 15:03 → 4BH 10-18 18:48
PROVIDERS: ADMIT Internal Medicine; ATTEND Internal Medicine
DX: U07.1 COVID-19 (principal); J12.82 Pneumonia due to coronavirus disease 2019; E87.70 Fluid overload, unspecified; J96.01 Acute respiratory failure with hypoxia; E87.5 Hyperkalemia; I12.0 Hypertensive chronic kidney disease with stage 5 chronic kidney disease or end stage renal disease; N18.6 End stage renal disease; E11.22 Type 2 diabetes mellitus with diabetic chronic kidney disease; E11.65 Type 2 diabetes mellitus with hyperglycemia; E66.9 Obesity, unspecified; N40.0 Benign prostatic hyperplasia without lower urinary tract symptoms; E78.00 Pure hypercholesterolemia, unspecified; E78.5 Hyperlipidemia, unspecified; I25.10 Atherosclerotic heart disease of native coronary artery without angina pectoris; R53.81 Other malaise; Z91.19 Patient's noncompliance with other medical treatment and regimen; Z79.4 Long term (current) use of insulin; Z79.899 Other long term (current) drug therapy; Z99.2 Dependence on renal dialysis; Z98.890 Other specified postprocedural states; Z68.31 Body mass index [BMI] 31.0-31.9, adult
CPT/HCPCS: 36415 ×3; 36600; 71045 ×4; 80048; 80053 ×2; 82803; 82948 ×13; 83605; 83735; 83880; 84100; 84145; 84484; 85025 ×3; 85610 ×2; 87040 ×2; 87635; 87804 ×2; 93005; 94640; 96365; 96375 ×2; 97161; 97530; 99291; C9803; G0378 ×53; J1756; J1815 ×5; J7070; 90935; J1200